=== PATIENT | female | born 1995 ===

== ENCOUNTER 2016-08-29 16:28 | Emergency (ER) | payer OTHER ==
[2016-08-29 16:28] VITALS: BMI 34.0
[2016-08-29 16:37] VITALS: RESP 20; TEMP 98.4; O2SAT 99
--- NOTE | 2016-08-29 17:29 | RAD ---
PROCEDURE: Right Hand Radiographs. HISTORY: Pain, right hand swelling. No antecedent history of trauma provided. Anatomic area of interest: 5th metatarsal region. COMPARISON: 04/06/2016. FINDINGS: BONES: Normal. No fracture. JOINTS: Normal. No osteoarthritic changes. SOFT TISSUES: Lateral soft tissue swelling without adjacent abnormality 5th digit, 5th metacarpal OTHER FINDINGS: None. IMPRESSION: Soft tissue swelling without acute articular or osseous abnormality. No significant interval change compared to the prior examination(s).
--- NOTE | 2016-08-29 17:41 | ED PDOC ---
Upper Extremity Pain/Injury Time Seen by Provider: 08/29/16 16:41 Chief Complaint (Nursing): Finger,Hand,&Wrist Chief Complaint (Provider): Atraumatic swelling of the left hand History Per: Patient History/Exam Limitations: no limitations Onset/Duration Of Symptoms: Hrs Current Symptoms Are (Timing): Still Present Additional Complaint(s): Raquel Garcia, a 20 year old female, presents to the ED with atraumatic left hand pain. The patient states she woke up this morning with pain and swelling of the left hand. She states she had similar symtoms months ago which resolved spontaneously. Denies rash, numbness, tingling. Past Medical History Reviewed: Historical Data, Nursing Documentation, Vital Signs Vital Signs: Last Vital Signs Temp 98.4 F 08/29/16 16:34 Pulse 106 H 08/29/16 16:34 Resp 20 08/29/16 16:34 BP 120/92 H 08/29/16 16:34 Pulse Ox 99 08/29/16 16:34 - Medical History PMH: No Chronic Diseases - Surgical History Surgical History: No Surg Hx - Family History Family History: States: Unknown Family Hx, Hypertension - Home Medications Home Medications: Ambulatory Orders Medication Instructions Recorded Guaifen/Phenyleph/Acetaminophn 1 tab PO BID #14 tab 05/07/16 [Mucinex Fast-Max Cold & Sinus 325 mg-200 mg-5] Ibuprofen [Motrin Tab] 800 mg PO Q6H PRN #20 tab 05/07/16 Ondansetron ODT [Zofran ODT] 4 mg PO QID #20 odt 05/15/16 Meloxicam [Mobic] 7.5 mg PO DAILY PRN #14 tab 08/29/16 - Allergies Allergies/Adverse Reactions: Allergies Allergy/AdvReac Type Severity Reaction Status Date / Time pineapple Allergy REDNESS Verified 05/07/16 13:17 Review of Systems Musculoskeletal: Positive for: Other (Denies numbness, tingling) Skin: Negative for: Rash Physical Exam - Reviewed Nursing Documentation Reviewed: Yes Vital Signs Reviewed: Yes - Physical Exam Appears: Positive for: Non-toxic, No Acute Distress Head Exam: Positive for: ATRAUMATIC, NORMOCEPHALIC Skin: Positive for: Normal Color, Warm, Dry Pulses-Radial (L): 2+ Extremity: Positive for: Normal ROM (actively of R hand), Tenderness (mild tenderness to right 5th metacarpal of left hand.), Capillary Refill (capillary refills less than 2 seconds.), Swelling (mild swelling to right 5th metacarpal with crepitus), Other. Negative for: Deformity Neurologic/Psych: Positive for: Alert, Oriented - ECG O2 Sat by Pulse Oximetry: 99 (RA) Pulse Ox Interpretation: Normal - Radiology X-Ray: Interpreted by Me (R hand x-ray) X-Ray Interpretation: No Acute Disease Medical Decision Making Medical Decision Makin:41 Initial Impression: 20 year old female presenting with atraumatic left hand pain Initial Plan: * RAD right hand Scribe Attestation Documented by Rina Stringer acting as a scribe for Indio Perez PA-C. Provider Attestation: All medical record entries made by the Scribe were at my direction and personally dictated by me. I have reviewed the chart and agree that the record accurately reflects my personal performance of the history, physical exam, medical decision making, and the department course for this patient. I have also personally directed, reviewed, and agree with the discharge instructions and disposition. Disposition - Clinical Impression Clinical Impression: Hand pain - Patient ED Disposition Is Patient to be Admitted: No - Disposition Referrals: [facility] [Outside] Heraclio Gray MD [Staff Provider] - Disposition Time: 17:30 Condition: STABLE Prescriptions: Meloxicam [Mobic] 7.5 mg PO DAILY PRN #14 tab PRN Reason: Pain, Mild (1-3) Instructions: Arthralgia (ED) Print Language: BELARUSIAN
[2016-08-29 17:44] VITALS: BP 120/89; PULSE 92
== END 2016-08-29 17:43 | disposition home or self-care (01) ==
LOC: H.ER 16:28
DX: M79.642 Pain in left hand (principal)

== ENCOUNTER 2016-11-24 16:29 | Emergency (ER) | payer OTHER ==
[2016-11-24 16:29] VITALS: BMI 34.0
[2016-11-24 16:41] VITALS: BP 122/81; PULSE 97; RESP 18; TEMP 98.3; O2SAT 99
--- NOTE | 2016-11-24 16:51 | ED PDOC ---
HPI: Female Pain Time Seen by Provider: 11/24/16 16:41 Chief Complaint (Nursing): Female Genitourinary Chief Complaint (Provider): dysuria History Per: Patient History/Exam Limitations: no limitations Onset/Duration Of Symptoms: Days (8) Current Symptoms Are (Timing): Still Present Quality Of Discomfort: Cramping (suprapubic) Associated Symptoms: Nausea, Urinary Symptoms (hematuira, dysuria, freq, burning , urgency). denies: Fever, Chills, Vomiting, Diarrhea, Loss Of Appetite, Back Pain, Chest Pain, Constipation Abnormal Vaginal Bleeding: No Past Medical History Reviewed: Historical Data, Nursing Documentation, Vital Signs Vital Signs: Last Vital Signs Temp 98.3 F 11/24/16 16:39 Pulse 97 H 11/24/16 16:39 Resp 18 11/24/16 16:39 BP 122/81 11/24/16 16:39 Pulse Ox 99 11/24/16 16:39 - Medical History PMH: No Chronic Diseases - Family History Family History: States: Unknown Family Hx, Hypertension - Home Medications Home Medications: Ambulatory Orders Medication Instructions Recorded Guaifen/Phenyleph/Acetaminophn 1 tab PO BID #14 tab 05/07/16 [Mucinex Fast-Max Cold & Sinus 325 mg-200 mg-5] Ibuprofen [Motrin Tab] 800 mg PO Q6H PRN #20 tab 05/07/16 Ondansetron ODT [Zofran ODT] 4 mg PO QID #20 odt 05/15/16 Meloxicam [Mobic] 7.5 mg PO DAILY PRN #14 tab 08/29/16 Nitrofurantoin Macrocrystals 100 mg PO BID #14 cap 11/24/16 [Macrobid] - Allergies Allergies/Adverse Reactions: Allergies Allergy/AdvReac Type Severity Reaction Status Date / Time pineapple Allergy REDNESS Verified 11/24/16 16:38 Review of Systems ROS Statement: Except As Marked, All Systems Reviewed And Found Negative Genitourinary Female: Positive for: Dysuria. Negative for: Hematuria, Pelvic Pain Physical Exam - Reviewed Nursing Documentation Reviewed: Yes Vital Signs Reviewed: Yes - Physical Exam Appears: Positive for: Well, Non-toxic, No Acute Distress Skin: Positive for: Normal Color, Warm, DRY Cardiovascular/Chest: Positive for: Regular Rate, Rhythm Respiratory: Positive for: CNT, Normal Breath Sounds Gastrointestinal/Abdominal: Positive for: Normal Exam, Bowel Sounds, Soft. Negative for: Tenderness Back: Positive for: Normal Inspection. Negative for: L CVA Tenderness, R CVA Tenderness Extremity: Positive for: Normal ROM Neurologic/Psych: Positive for: Alert, Oriented - ECG O2 Sat by Pulse Oximetry: 99 - Progress ED Course And Treament: impression: cystitis uncomplicated Medical Decision Making Medical Decision Making: dx: UTI tx: macrobid pt states she was seen at her obgyn on Saturday-was tested for STI. advised to f.u with pmd Urine C&S sent. Disposition - Clinical Impression Clinical Impression: UTI (urinary tract infection) - Patient ED Disposition Is Patient to be Admitted: No Counseled Patient/Family Regarding: Studies Performed, Diagnosis, Need For Followup, Rx Given - Disposition Referrals: [facility] [Outside] Disposition: Routine/Home Disposition Time: 17:04 Condition: STABLE Prescriptions: Nitrofurantoin Macrocrystals [Macrobid] 100 mg PO BID #14 cap Instructions: Urinary Tract Infection in Women (GEN) Forms: [facility] (Kyrgyz)
[2016-11-24 17:11] LABS: RBC URINE 1231 /hpf (0-3); URINE BILIRUBIN NEGATIVE (NEGATIVE); URINE BLOOD LARGE (NEGATIVE); URINE COLOR YELLOW (YELLOW); URINE GLUCOSE (UA) NEG (Normal); URINE KETONE NEGATIVE (NEGATIVE); URINE LEUKOCYTE ESTERASE MOD Leu/uL (Negative); URINE PROTEIN 30 mg/dL (NEGATIVE); URINE UROBILINOGEN 0.2-1.0 mg/dL (0.2-1.0); WBC URINE 16 /hpf (0-5)
== END 2016-11-24 17:22 | disposition home or self-care (01) ==
LOC: H.ER 16:29
DX: N39.0 Urinary tract infection, site not specified (principal); N30.90 Cystitis, unspecified without hematuria

== ENCOUNTER 2017-03-12 10:48 | Emergency (ER) | payer OTHER ==
[2017-03-12 10:58] VITALS: BMI 36.0
[2017-03-12 10:59] VITALS: BP 129/72; PULSE 100; RESP 20; TEMP 98.8; O2SAT 99
[2017-03-12] MEDS ORDERED: Sodium Chloride 0.9% 1,000 ML IV STA (11:23)
--- NOTE | 2017-03-12 11:23 | ED PDOC ---
HPI:Nausea, Vomiting, Diarrhea Time Seen by Provider: 03/12/17 11:05 Chief Complaint (Nursing): GI Problem Chief Complaint (Provider): Nausea History Per: Patient History/Exam Limitations: no limitations Onset/Duration Of Symptoms: Days (2 weeks) Current Symptoms Are (Timing): Still Present Additional Complaint(s): Pt. with nausea, no vomit. States wants to know if she is preg. No abd pain, pelvic pain, vaginal bleeding, dysuria, weakness, back pain, dyspnea, fever. No dizziness. Has off and on headaches that are the same as her migraines, not new. Ongoing for a long time. Not worst in her life. No neck pain, numbness, tingles. No headache currently. Past Medical History Reviewed: Nursing Documentation, Vital Signs Vital Signs: Last Vital Signs Temp 98.8 F 03/12/17 10:58 Pulse 100 H 03/12/17 10:58 Resp 20 03/12/17 10:58 BP 129/72 03/12/17 10:58 Pulse Ox 99 03/12/17 10:58 - Medical History PMH: No Chronic Diseases - Surgical History Surgical History: No Surg Hx - Family History Family History: States: Unknown Family Hx - Living Arrangements Living Arrangements: With Family - Social History Current smoker - smoking cessation education provided: No Alcohol: None Drugs: Denies, Cannabis - Home Medications Home Medications: Ambulatory Orders Medication Instructions Recorded Guaifen/Phenyleph/Acetaminophn 1 tab PO BID #14 tab 05/07/16 [Mucinex Fast-Max Cold & Sinus 325 mg-200 mg-5] Ibuprofen [Motrin Tab] 800 mg PO Q6H PRN #20 tab 05/07/16 Ondansetron ODT [Zofran ODT] 4 mg PO QID #20 odt 05/15/16 Meloxicam [Mobic] 7.5 mg PO DAILY PRN #14 tab 08/29/16 Nitrofurantoin Macrocrystals 100 mg PO BID #14 cap 11/24/16 [Macrobid] - Allergies Allergies/Adverse Reactions: Allergies Allergy/AdvReac Type Severity Reaction Status Date / Time pineapple Allergy REDNESS Verified 11/24/16 16:38 Review of Systems ROS Statement: Except As Marked, All Systems Reviewed And Found Negative Gastrointestinal: Positive for: Nausea Neurological: Positive for: Headache (same as her migraines gone now) Physical Exam - Reviewed Nursing Documentation Reviewed: Yes Vital Signs Reviewed: Yes - Physical Exam Appears: Positive for: Non-toxic, No Acute Distress Head Exam: Positive for: ATRAUMATIC, NORMAL INSPECTION, NORMOCEPHALIC Skin: Positive for: Normal Color, Warm, DRY Eye Exam: Positive for: EOMI, Normal appearance, PERRL ENT: Positive for: Normal ENT Inspection Neck: Positive for: Normal, Painless ROM, Supple Cardiovascular/Chest: Positive for: Regular Rate, Rhythm Respiratory: Positive for: CNT, Normal Breath Sounds Gastrointestinal/Abdominal: Positive for: Normal Exam, Bowel Sounds, Soft. Negative for: Tenderness Back: Positive for: Normal Inspection. Negative for: L CVA Tenderness, R CVA Tenderness Extremity: Positive for: Normal ROM. Negative for: Tenderness, Pedal Edema Neurologic/Psych: Positive for: Alert, legal technician II-XII, Oriented. Negative for: Motor/Sensory Deficits, Aphasia, Facial Droop - Laboratory Results Result Diagrams: 03/12/17 11:51 03/12/17 11:51 Interpretation Of Abn Labs: no acute Urine POC: Negative Urine dip results: Negative for: Leukocyte Esterase, Nitrate - ECG O2 Sat by Pulse Oximetry: 99 Pulse Ox Interpretation: Normal - Progress ED Course And Treament: 1214: Stable. AAOx3. No pain and no nausea or vomit. No headaches. Ambulated with no issues. Tolerated PO. Fu with pcp. Disposition - Clinical Impression Clinical Impression: Nausea - Patient ED Disposition Is Patient to be Admitted: No Counseled Patient/Family Regarding: Studies Performed, Diagnosis, Need For Followup - Disposition Referrals: [facility] [Outside] - 03/13/17 Disposition: Routine/Home Disposition Time: 12:15 Condition: STABLE Additional Instructions: Return if not better in 3 days. Instructions: Acute Nausea and Vomiting (ED) Forms: [facility] (Honduran), [facility] ED School/Work Excuse
[2017-03-12 12:09] LABS: ALB/GLOB RATIO 1.2 (1.0-2.1); ALKALINE PHOSPHATASE 61 U/L (38-126); ALT/SGPT 33 U/L (9-52); AST/SGOT 22 U/L (14-36); BILIRUBIN,TOTAL 0.4 mg/dl (0.2-1.3); BLOOD UREA NITROGEN 12 mg/dl (7-17); CARBON DIOXIDE 24 mmol/L (22-30); CHLORIDE 107 mmol/L (98-107); GFR AFRICAN-AMERICAN > 60; GLUCOSE,RANDOM 99 mg/dL (65-105); LIPASE 46 U/L (23-300); SODIUM 143 mmol/l (132-148)
[2017-03-12 12:10] LABS: BASO % 0.5 % (0.0-2.0); EOS % 0.3 % (0.0-4.0); HEMATOCRIT 32.3 % (34.0-47.0); LYMPH # 1.9 K/uL (1.0-4.3); LYMPH % 25.4 % (20.0-40.0); MEAN CELL VOLUME 66.1 fl (81.0-99.0); MEAN CORPUSCULAR HEMOGLOBIN 20.7 pg (27.0-31.0); MEAN CORPUSCULAR HGB CONC 31.3 g/dL (33.0-37.0); MEAN PLATELET VOLUME 7.8 fl (7.2-11.7); MONO # 0.5 K/uL (0.0-0.8); MONO % 6.5 % (0.0-10.0); NEUT # 4.9 K/uL (1.8-7.0); NEUT % 67.3 % (50.0-75.0); RED CELL DISTRIBUTION WIDTH 18.3 % (11.5-14.5); WHITE BLOOD COUNT 7.3 K/uL (4.8-10.8)
== END 2017-03-12 13:30 | disposition home or self-care (01) ==
LOC: H.ER 10:48
DX: R11.0 Nausea (principal)
CPT/HCPCS: 80053; 81025; 83690; 85025; 96374; 99281; J2765; J7040

== ENCOUNTER 2017-04-10 17:46 | Emergency (ER) | payer OTHER ==
[2017-04-10 17:47] VITALS: BMI 36.0
[2017-04-10 18:37] VITALS: BP 150/83; PULSE 93; RESP 16; TEMP 98.7; O2SAT 99
--- NOTE | 2017-04-10 18:56 | ED PDOC ---
HPI: General Adult Time Seen by Provider: 04/10/17 18:14 Chief Complaint (Nursing): Cough, Cold, Congestion Chief Complaint (Provider): Cough, Cold, Congestion History Per: Patient History/Exam Limitations: no limitations Onset/Duration Of Symptoms: Days (x 2) Current Symptoms Are (Timing): Still Present Additional Complaint(s): Vandana is a 21 year old female who presents to the emergency department with congestion, sneezing and coughing since last night. Patient states her fever was measured at 100. Patient reports taking Tylenol earlier today, and Nyquil last night. PMD: Holly Ang Past Medical History Reviewed: Historical Data, Nursing Documentation, Vital Signs Vital Signs: Last Vital Signs Temp 98.7 F 04/10/17 18:34 Pulse 93 H 04/10/17 18:34 Resp 16 04/10/17 18:34 BP 150/83 04/10/17 18:34 Pulse Ox 99 04/10/17 19:00 - Medical History PMH: No Chronic Diseases - Surgical History Surgical History: No Surg Hx - Family History Family History: States: Unknown Family Hx, Hypertension - Social History Current smoker - smoking cessation education provided: No Alcohol: None Drugs: Denies - Home Medications Home Medications: Ambulatory Orders Medication Instructions Recorded Guaifen/Phenyleph/Acetaminophn 1 tab PO BID #14 tab 05/07/16 [Mucinex Fast-Max Cold & Sinus 325 mg-200 mg-5] Ibuprofen [Motrin Tab] 800 mg PO Q6H PRN #20 tab 05/07/16 Ondansetron ODT [Zofran ODT] 4 mg PO QID #20 odt 05/15/16 Meloxicam [Mobic] 7.5 mg PO DAILY PRN #14 tab 08/29/16 Nitrofurantoin Macrocrystals 100 mg PO BID #14 cap 11/24/16 [Macrobid] Azithromycin [Zithromax] 250 mg PO DAILY #6 tab 04/10/17 - Allergies Allergies/Adverse Reactions: Allergies Allergy/AdvReac Type Severity Reaction Status Date / Time pineapple Allergy REDNESS Verified 04/10/17 18:34 Review of Systems ROS Statement: Except As Marked, All Systems Reviewed And Found Negative ENT: Positive for: Nose Congestion, Other (Sneezing) Respiratory: Positive for: Cough - ECG O2 Sat by Pulse Oximetry: 99 (RA) Pulse Ox Interpretation: Normal Medical Decision Making Medical Decision Making: Time: 18:57 Plan: - Urine (POC) - Chest X-Ray Scribe Attestation: Documented by Jean Case, acting as a scribe for Kelin Acevedo PA-C Provider Scribe Attestation: All medical record entries made by the Scribe were at my direction and personally dictated by me. I have reviewed the chart and agree that the record accurately reflects my personal performance of the history, physical exam, medical decision making, and the department course for this patient. I have also personally directed, reviewed, and agree with the discharge instructions and disposition. Disposition - Clinical Impression Clinical Impression: Acute bronchitis - Patient ED Disposition Is Patient to be Admitted: No Counseled Patient/Family Regarding: Diagnosis, Need For Followup, Rx Given - Disposition Disposition: Routine/Home Disposition Time: 20:51 Condition: GOOD Prescriptions: Azithromycin [Zithromax] 250 mg PO DAILY #6 tab Instructions: Acute Bronchitis (ED) Forms: [employer] (Persian)
--- NOTE | 2017-04-11 09:28 | RAD ---
HISTORY: cough COMPARISON: 03/10/2016 TECHNIQUE: Chest PA and lateral FINDINGS: LUNGS: No active pulmonary disease. PLEURA: No significant pleural effusion identified. No pneumothorax apparent. CARDIOVASCULAR: Normal. OSSEOUS STRUCTURES: No significant abnormalities. VISUALIZED UPPER ABDOMEN: Normal. OTHER FINDINGS: None. IMPRESSION: No active disease.
== END 2017-04-10 20:56 | disposition home or self-care (01) ==
LOC: H.ER 17:46
DX: J20.9 Acute bronchitis, unspecified (principal)

== ENCOUNTER 2017-08-06 18:10 | Emergency (ER) | payer OTHER ==
[2017-08-06 18:11] VITALS: BMI 36.0
[2017-08-06 18:16] VITALS: BP 147/80; RESP 18; TEMP 98.5; O2SAT 98
[2017-08-06] MEDS: Lactated Ringer's 1,000 ML IV STA (18:48)
[2017-08-06 18:57] VITALS: PULSE 92
--- NOTE | 2017-08-06 18:57 | ED PDOC ---
HPI:Nausea, Vomiting, Diarrhea Time Seen by Provider: 08/06/17 18:21 Chief Complaint (Nursing): GI Problem Chief Complaint (Provider): GI Problem History Per: Patient History/Exam Limitations: no limitations Onset/Duration Of Symptoms: Days (x1) Current Symptoms Are (Timing): Still Present Additional Complaint(s): 21 year old female with medical history of migraines, presents to the emergency department with a complaint of nausea and 2 episodes of vomiting since waking up this morning. She also reports decreased appetite but was able to tolerate soup ingested 2 hours prior to visit. She denies any fever, chills, abdominal pain, diarrhea, constipation, dysuria, hematuria, vaginal discharge, vaginal bleeding, recent sick contacts or travel. Patient states that she took Tums and Ana Laura-Jones for relief. PMD: Donn Almonte MD Past Medical History Reviewed: Historical Data, Nursing Documentation, Vital Signs Vital Signs: Last Vital Signs Temp 98.5 F 08/06/17 18:13 Pulse 114 H 08/06/17 18:13 Resp 18 08/06/17 18:13 BP 147/80 08/06/17 18:13 Pulse Ox 98 08/06/17 18:13 - Medical History PMH: Migraine - Surgical History Surgical History: No Surg Hx - Family History Family History: States: Diabetes, Hypertension, Other Other Family History: cancer - Social History Current smoker - smoking cessation education provided: No Ex-Smoker (has not smoked in the last 12 months): No Alcohol: None Drugs: Denies - Home Medications Home Medications: Ambulatory Orders Medication Instructions Recorded Guaifen/Phenyleph/Acetaminophn 1 tab PO BID #14 tab 05/07/16 [Mucinex Fast-Max Cold & Sinus 325 mg-200 mg-5] Ibuprofen [Motrin Tab] 800 mg PO Q6H PRN #20 tab 05/07/16 Ondansetron ODT [Zofran ODT] 4 mg PO QID #20 odt 05/15/16 Meloxicam [Mobic] 7.5 mg PO DAILY PRN #14 tab 08/29/16 Nitrofurantoin Macrocrystals 100 mg PO BID #14 cap 11/24/16 [Macrobid] Azithromycin [Zithromax] 250 mg PO DAILY #6 tab 04/10/17 Ondansetron ODT [Zofran ODT] 1 odt PO Q6 PRN #20 odt 08/06/17 - Allergies Allergies/Adverse Reactions: Allergies Allergy/AdvReac Type Severity Reaction Status Date / Time pineapple Allergy REDNESS Verified 04/10/17 18:34 Review of Systems ROS Statement: Except As Marked, All Systems Reviewed And Found Negative Constitutional: Negative for: Fever, Chills Gastrointestinal: Positive for: Nausea, Vomiting, Other (decreased appetite). Negative for: Abdominal Pain, Diarrhea, Constipation Genitourinary Female: Negative for: Dysuria, Hematuria, Vaginal Discharge, Vaginal Bleeding Physical Exam - Reviewed Nursing Documentation Reviewed: Yes Vital Signs Reviewed: Yes - Physical Exam Appears: Positive for: Non-toxic, No Acute Distress Head Exam: Positive for: ATRAUMATIC, NORMOCEPHALIC Skin: Positive for: Warm, Dry Eye Exam: Positive for: EOMI, PERRL ENT: Positive for: Other (tacky) Neck: Positive for: Painless ROM, Supple Cardiovascular/Chest: Positive for: Regular Rate, Rhythm. Negative for: Murmur Respiratory: Positive for: Normal Breath Sounds. Negative for: Wheezing Gastrointestinal/Abdominal: Positive for: Normal Exam, Soft. Negative for: Tenderness, Mass, Distended, Guarding, Rebound Back: Positive for: Normal Inspection. Negative for: Muscle Spasm Extremity: Positive for: Normal ROM. Negative for: Deformity Lymphatic: Negative for: Adenopathy Neurologic/Psych: Positive for: Alert. Negative for: Motor/Sensory Deficits - Laboratory Results Result Diagrams: 08/06/17 19:15 08/06/17 19:15 - ECG O2 Sat by Pulse Oximetry: 98 (RA) Pulse Ox Interpretation: Normal Medical Decision Making Medical Decision Making: Initial Impression: Nausea; Vomiting Differential Diagnosis: Gastritis; Dyspepsia; Reflux; Dehydration Initial Plan: * CMP * Lipase * Urine * Urine dipstick * CBC * Lactated Ringers 1,000ml IV per 1,000mls/hr * Zofran 4mg PO Labs unremarkable. DW pt findings and plan of care. Increase fluids, bland diet, rest, f/u pmd. Scribe Attestation: Documented by Heidi Lee, acting as a scribe for Ginny Temple MD. Provider Scribe Attestation: All medical record entries made by the Scribe were at my direction and personally dictated by me. I have reviewed the chart and agree that the record accurately reflects my personal performance of the history, physical exam, medical decision making, and the department course for this patient. I have also personally directed, reviewed, and agree with the discharge instructions and disposition. Disposition - Clinical Impression Clinical Impression: Nausea & vomiting Counseled Patient/Family Regarding: Studies Performed, Diagnosis, Need For Followup, Rx Given - Disposition Referrals: [facility] [Outside] - 08/07/17 (FOLLOW UP WITH CLINIC IN 1- 2 DAYS) Disposition: Routine/Home Disposition Time: 21:05 Condition: IMPROVED Prescriptions: Ondansetron ODT [Zofran ODT] 1 odt PO Q6 PRN #20 odt PRN Reason: Nausea/Vomiting Instructions: Nausea and Vomiting, Adult Forms: [facility] School/Work Excuse
[2017-08-06 19:39] LABS: BASO # 0.1 K/uL (0.0-0.2); BASO % 0.6 % (0.0-2.0); EOS % 0.2 % (0.0-4.0); HEMOGLOBIN 10.4 g/dL (12.0-16.0); LYMPH # 2.1 K/uL (1.0-4.3); LYMPH % 20.7 % (20.0-40.0); MEAN CELL VOLUME 67.1 fl (81.0-99.0); MEAN CORPUSCULAR HEMOGLOBIN 21.8 pg (27.0-31.0); MEAN CORPUSCULAR HGB CONC 32.4 g/dL (33.0-37.0); MEAN PLATELET VOLUME 7.5 fl (7.2-11.7); MONO # 0.9 K/uL (0.0-0.8); MONO % 8.5 % (0.0-10.0); NEUT # 7.1 K/uL (1.8-7.0); NRBC % 0.1 % (0.0-0.0); RBC 4.77 Mil/uL (3.80-5.20); RED CELL DISTRIBUTION WIDTH 18.1 % (11.5-14.5); WHITE BLOOD COUNT 10.2 K/uL (4.8-10.8)
[2017-08-06 19:42] LABS: ALB/GLOB RATIO 1.1 (1.0-2.1); ALBUMIN 4.2 g/dL (3.5-5.0); ALT/SGPT 33 U/L (9-52); AST/SGOT 21 U/L (14-36); BLOOD UREA NITROGEN 11 mg/dl (7-17); GFR AFRICAN-AMERICAN > 60; GFR NON-AFRICAN AMERICAN > 60; LIPASE 67 U/L (23-300)
== END 2017-08-06 21:33 | disposition home or self-care (01) ==
LOC: H.ER 18:10
DX: R11.2 Nausea with vomiting, unspecified (principal)
CPT/HCPCS: 80053; 81025; 83690; 85025; 96360; 99284; J7120

== ENCOUNTER 2017-10-05 05:59 | Emergency (ER) | payer OTHER ==
[2017-10-05 05:59] VITALS: BMI 34.4
[2017-10-05] MEDS ORDERED: Sodium Chloride 0.9% 1,000 ML IV STA (07:17)
--- NOTE | 2017-10-05 07:23 | ED PDOC ---
HPI: General Adult Time Seen by Provider: 10/05/17 07:02 Chief Complaint (Nursing): Fever Chief Complaint (Provider): Fever History Per: Patient History/Exam Limitations: no limitations Onset/Duration Of Symptoms: Days (x2) Current Symptoms Are (Timing): Still Present Additional Complaint(s): 21 year old female presented to the ED complaining of fever since . Patient reports sore throat and left ear pain when she swallows. She states she vomited once on Saturday and twice today due to nausea. Patient indicates having a headache but states it is normal due to frequent migraines. She took dayquil yesterday and tylenol last night. Patient is also complaining of cough with no sputum and denies runny nose, diarrhea, belly pain, back pain, dysuria, and rash. LNMP 10/05/17. PCP: [facility] in [place] Past Medical History Reviewed: Historical Data, Nursing Documentation, Vital Signs Vital Signs: Last Vital Signs Temp 99.4 F 10/05/17 06:17 Pulse 108 H 10/05/17 09:14 Resp 14 10/05/17 09:14 BP 118/77 10/05/17 09:14 Pulse Ox 100 10/05/17 09:14 - Medical History PMH: Migraine - Surgical History Surgical History: No Surg Hx - Family History Family History: States: Unknown Family Hx, Diabetes, Hypertension - Social History Current smoker - smoking cessation education provided: No Alcohol: Occasional Drugs: Denies - Home Medications Home Medications: Ambulatory Orders Medication Instructions Recorded Guaifen/Phenyleph/Acetaminophn 1 tab PO BID #14 tab 05/07/16 [Mucinex Fast-Max Cold & Sinus 325 mg-200 mg-5] Ondansetron ODT [Zofran ODT] 4 mg PO QID #20 odt 05/15/16 Meloxicam [Mobic] 7.5 mg PO DAILY PRN #14 tab 08/29/16 Nitrofurantoin Macrocrystals 100 mg PO BID #14 cap 11/24/16 [Macrobid] Azithromycin [Zithromax] 250 mg PO DAILY #6 tab 04/10/17 Ondansetron ODT [Zofran ODT] 1 odt PO Q6 PRN #20 odt 08/06/17 Ibuprofen [Motrin Tab] 800 mg PO Q6H PRN #20 tab 05/15/18 Amoxicillin/Clavulanate [Augmentin 1 tab PO BID #20 tab 10/05/17 875 MG-125 MG] Lidocaine 2% Viscous 10 ml MM Q4H PRN #1 bottle 10/05/17 Naproxen [Naprosyn] 500 mg PO BID PRN #20 tablet 10/05/17 - Allergies Allergies/Adverse Reactions: Allergies Allergy/AdvReac Type Severity Reaction Status Date / Time pineapple Allergy REDNESS Verified 04/10/17 18:34 Review of Systems ROS Statement: Except As Marked, All Systems Reviewed And Found Negative Constitutional: Positive for: Fever ENT: Positive for: Ear Pain (left), Throat Pain (sore throat) Cardiovascular: Negative for: Chest Pain Respiratory: Positive for: Cough Gastrointestinal: Positive for: Nausea, Vomiting. Negative for: Abdominal Pain , Diarrhea Genitourinary Female: Negative for: Dysuria Skin: Negative for: Rash Neurological: Positive for: Headache Physical Exam - Reviewed Nursing Documentation Reviewed: Yes Vital Signs Reviewed: Yes - Physical Exam Appears: Positive for: Non-toxic, No Acute Distress Head Exam: Positive for: ATRAUMATIC, NORMOCEPHALIC Skin: Positive for: Normal Color, Warm, Dry Eye Exam: Positive for: Normal appearance ENT: Positive for: Pharynx Is (erythematous and tender on left side), TM Is/Are (normal), Other (uvula is midline) Neck: Positive for: Normal, Painless ROM Cardiovascular/Chest: Positive for: Regular Rate, Rhythm. Negative for: Murmur Respiratory: Positive for: Normal Breath Sounds. Negative for: Wheezing, Respiratory Distress Back: Positive for: Normal Inspection. Negative for: L CVA Tenderness, R CVA Tenderness Extremity: Positive for: Normal ROM Neurologic/Psych: Positive for: Alert, Oriented. Negative for: Motor/Sensory Deficits - Laboratory Results Result Diagrams: 10/05/17 07:33 10/05/17 07:33 - ECG O2 Sat by Pulse Oximetry: 97 (RA) Pulse Ox Interpretation: Normal Medical Decision Making Medical Decision Making: Initial Impression: pharyngitis, r/o peritonsillar abscess Initial Plan: --CT neck --BMP --CBC --PTT --Prothrombin Time --Sodium chloride 1000mL IV --Ceftriaxone 1000mg Sodium chloride 0.9% 100mL IV --Toradol 30mg IV --Zofran 4mg IV --Blood culture --Rapid strep Scribe Attestation: Documented by Jason Peres acting as a scribe for Andreia Martinez MD. Provider Scribe Attestation: All medical record entries made by the Scribe were at my direction and personally dictated by me. I have reviewed the chart and agree that the record accurately reflects my personal performance of the history, physical exam, medical decision making, and the department course for this patient. I have also personally directed, reviewed, and agree with the discharge instructions and disposition. 9.30a - CT Neck - no abscess or fluid collection Disposition - Clinical Impression Clinical Impression: Tonsillopharyngitis - Patient ED Disposition Is Patient to be Admitted: No Doctor Will See Patient In The: Office Counseled Patient/Family Regarding: Diagnosis, Need For Followup, Rx Given - Disposition Referrals: [facility] [Outside] [facility] [place] [Outside] [facility] [Outside] Disposition: Routine/Home Disposition Time: 09:30 Condition: IMPROVED Prescriptions: Amoxicillin/Clavulanate [Augmentin 875 MG-125 MG] 1 tab PO BID #20 tab Lidocaine 2% Viscous 10 ml MM Q4H PRN #1 bottle PRN Reason: Sore Throat Naproxen [Naprosyn] 500 mg PO BID PRN #20 tablet PRN Reason: Pain, Moderate (4-7) Instructions: Sore Throat in Adults Forms: [facility] (E[place]ian), [facility] ED School/Work Excuse - POA Present On Arrival: None
[2017-10-05] MEDS ORDERED: cefTRIAXone (Rocephin) 1 gm Inj ONE (07:41)
[2017-10-05 07:50] LABS: BASO % 0.2 % (0.0-2.0); HEMOGLOBIN 10.4 g/dL (12.0-16.0); LYMPH # 0.8 K/uL (1.0-4.3); LYMPH % 4.9 % (20.0-40.0); MEAN CELL VOLUME 66.7 fl (81.0-99.0); MEAN CORPUSCULAR HEMOGLOBIN 21.7 pg (27.0-31.0); MEAN CORPUSCULAR HGB CONC 32.6 g/dL (33.0-37.0); MEAN PLATELET VOLUME 7.5 fl (7.2-11.7); MONO # 1.4 K/uL (0.0-0.8); MONO % 8.6 % (0.0-10.0); NEUT # 14.3 K/uL (1.8-7.0); NEUT % 86.3 % (50.0-75.0); NRBC % 0.1 % (0.0-0.0); PLATELET COUNT 499 K/uL (130-400); RED CELL DISTRIBUTION WIDTH 17.1 % (11.5-14.5); WHITE BLOOD COUNT 16.6 K/uL (4.8-10.8)
[2017-10-05 08:04] LABS: BLOOD UREA NITROGEN 9 mg/dl (7-17); CALCIUM 9.1 mg/dL (8.4-10.2); GFR AFRICAN-AMERICAN > 60; GFR NON-AFRICAN AMERICAN > 60
[2017-10-05 08:16] LABS: INR 1.4 (0.9-1.2); PARTIAL THROMBOPLASTIN TIME 31.5 Seconds (25.6-37.1); PROTHROMBIN TIME 15.2 Seconds (9.8-13.1)
[2017-10-05] MEDS ORDERED: Iohexol 300 100 ML IJ ONE (08:43)
[2017-10-05] MEDS ORDERED: Sodium Chloride 0.9% 50 ML IV ONE (08:43)
[2017-10-05] MEDS ORDERED: Potassium Chloride 20 mEq ER Tab PO STA (08:56)
[2017-10-05] MEDS ORDERED: Potassium Chloride 20 mEq ER Tab PO ONE ×2 (09:12→09:17)
--- NOTE | 2017-10-05 10:00 | CT ---
PROCEDURE: CT NECK WITH CONTRAST HISTORY: left sided throat pain, fever COMPARISON: None TECHNIQUE: CT of the neck with intravenous contrast. Coronal and sagittal reformats generated. Intravenous contrast dose: Radiation dose: DLP mGy-cm This CT exam was performed using one or more of the following dose reduction techniques: Automated exposure control, adjustment of the mA and/or kV according to patient size, and/or use of iterative reconstruction technique. FINDINGS: NASOPHARYNX: Mild prominence of the the left parapharyngeal soft tissues without evidence of fluid collection/abscess. Suggestion of slight mass effect upon the airway. SUPRAHYOID NECK: Unremarkable oropharynx, oral cavity, parapharyngeal space and retropharyngeal space. INFRAHYOID NECK: Unremarkable larynx, hypopharynx, and supraglottic space. Vocal cords intact. MASS: None. GLANDS: Parotid and submandibular glands unremarkable. Normal size thyroid gland, without nodule. LYMPH NODES: Enlarged 11 millimeter left jugulodigastric lymph node. CERVICAL SPINE: No fracture or focal lesion. VASCULAR STRUCTURES: Unremarkable. OTHER FINDINGS: None. IMPRESSION: Mild prominence of the the left parapharyngeal soft tissues without evidence of fluid collection/abscess. Suggestion of slight mass effect upon the airway.Enlarged non 11 millimeter left jugulodigastric lymph node. Findings suspicious for an underlying inflammatory process.
[2017-10-05 10:11] LABS: BANDS 2 % (0-2); LYMPHOCYTE 7 % (20-50); MONOCYTE 7 % (0-10); NEUTROPHIL 84 % (42-75); TOTAL CELLS COUNTED 100
[2017-10-05 10:17] LABS: ANISOCYTOSIS SLIGHT; MICROCYTOSIS SLIGHT
[2017-10-05 10:18] LABS: HYPOCHROMIC SLIGHT; PLATELET CLUMPS PRESENT; STOMATOCYTES SLIGHT
[2017-10-05 10:19] LABS: TOXIC GRANULATION PRESENT
[2017-10-05 10:42] VITALS: BP 101/66; PULSE 96; RESP 22; TEMP 98.5; O2SAT 100
[2017-10-05 11:17] LABS: PLATELET ESTIMATE SLIGHTLY INCREASED (NORMAL)
== END 2017-10-05 10:44 | disposition home or self-care (01) ==
LOC: H.ER 05:59
DX: J03.90 Acute tonsillitis, unspecified (principal)
CPT/HCPCS: 70491; 80048; 81025; 85025; 85610; 85730; 87040; 87070; 87430; 96374; 96375; 99284; J0696; J1885; J2405; J7030; Q9967

== ENCOUNTER 2017-11-08 12:28 | Emergency (ER) | payer OTHER ==
[2017-11-08 12:28] VITALS: BMI 34.4
[2017-11-08 12:35] VITALS: BP 123/79; PULSE 112; RESP 16; TEMP 98.7; O2SAT 98
[2017-11-08] MEDS ORDERED: Sodium Chloride 0.9% 1,000 ML IV STA (12:58)
[2017-11-08 14:08] LABS: BASO % 0.3 % (0.0-2.0); EOS % 0.1 % (0.0-4.0); HEMOGLOBIN 10.6 g/dL (12.0-16.0); LYMPH # 0.4 K/uL (1.0-4.3); MEAN CELL VOLUME 67.6 fl (81.0-99.0); MEAN CORPUSCULAR HEMOGLOBIN 21.6 pg (27.0-31.0); MEAN CORPUSCULAR HGB CONC 31.9 g/dL (33.0-37.0); MEAN PLATELET VOLUME 7.5 fl (7.2-11.7); MONO # 0.5 K/uL (0.0-0.8); MONO % 4.7 % (0.0-10.0); NEUT # 9.8 K/uL (1.8-7.0); NEUT % 90.9 % (50.0-75.0); PLATELET COUNT 515 K/uL (130-400); RBC 4.89 Mil/uL (3.80-5.20); RED CELL DISTRIBUTION WIDTH 18.2 % (11.5-14.5); WHITE BLOOD COUNT 10.7 K/uL (4.8-10.8)
[2017-11-08 14:24] LABS: ALB/GLOB RATIO 1.3 (1.0-2.1); ALBUMIN 4.6 g/dL (3.5-5.0); ALT/SGPT 25 U/L (9-52); AST/SGOT 25 U/L (14-36); BLOOD UREA NITROGEN 15 mg/dl (7-17); CALCIUM 9.1 mg/dL (8.4-10.2); GFR AFRICAN-AMERICAN > 60; GFR NON-AFRICAN AMERICAN > 60; LIPASE 49 U/L (23-300)
--- NOTE | 2017-11-08 14:46 | ED PDOC ---
HPI: Abdomen Time Seen by Provider: 11/08/17 12:58 Chief Complaint (Nursing): GI Problem Chief Complaint (Provider): GI Problem History Per: Patient History/Exam Limitations: no limitations Onset/Duration Of Symptoms: Hrs Current Symptoms Are (Timing): Still Present Additional Complaint(s): 22 y/o female with no significant PMHx presents to the ED complaining of multiple episodes of vomiting and diarrhea. Patient also reports of abdominal discomfort when she feels she is about to vomit, otherwise no abdominal pain. Patient states her boyfriend had a stomach virus and his symptoms are just now improving. Otherwise: (-) fever, (-) travel, (-) antibiotic use, (-) surgery to the abdomen, (-) urinary symptoms. PMD: [facility] Past Medical History Reviewed: Historical Data, Nursing Documentation, Vital Signs Vital Signs: Last Vital Signs Temp 98.7 F 11/08/17 12:34 Pulse 112 H 11/08/17 12:34 Resp 16 11/08/17 12:34 BP 123/79 11/08/17 12:34 Pulse Ox 98 11/08/17 15:22 - Medical History PMH: Migraine - Surgical History Surgical History: No Surg Hx Denies: Appendectomy - Family History Family History: States: Diabetes, Hypertension - Home Medications Home Medications: Ambulatory Orders Medication Instructions Recorded Guaifen/Phenyleph/Acetaminophn 1 tab PO BID #14 tab 05/07/16 [Mucinex Fast-Max Cold & Sinus 325 mg-200 mg-5] Ondansetron ODT [Zofran ODT] 4 mg PO QID #20 odt 05/15/16 Meloxicam [Mobic] 7.5 mg PO DAILY PRN #14 tab 08/29/16 Nitrofurantoin Macrocrystals 100 mg PO BID #14 cap 11/24/16 [Macrobid] Azithromycin [Zithromax] 250 mg PO DAILY #6 tab 04/10/17 Ondansetron ODT [Zofran ODT] 1 odt PO Q6 PRN #20 odt 08/06/17 Ibuprofen [Motrin Tab] 800 mg PO Q6H PRN #20 tab 08/20/17 Amoxicillin/Clavulanate [Augmentin 1 tab PO BID #20 tab 10/05/17 875 MG-125 MG] Lidocaine 2% Viscous 10 ml MM Q4H PRN #1 bottle 10/05/17 Naproxen [Naprosyn] 500 mg PO BID PRN #20 tablet 10/05/17 Ondansetron ODT [Zofran ODT] 4 mg PO DAILY PRN #20 odt 11/08/17 - Allergies Allergies/Adverse Reactions: Allergies Allergy/AdvReac Type Severity Reaction Status Date / Time pineapple Allergy REDNESS Verified 11/08/17 12:38 Review of Systems ROS Statement: Except As Marked, All Systems Reviewed And Found Negative Constitutional: Negative for: Fever Gastrointestinal: Positive for: Vomiting, Abdominal Pain (only when about to vomit), Diarrhea Genitourinary Female: Negative for: Dysuria, Frequency, Hematuria Physical Exam - Reviewed Nursing Documentation Reviewed: Yes Vital Signs Reviewed: Yes - Physical Exam Comments: GENERAL APPEARANCE: Patient is awake, alert, oriented x 3, in no distress. SKIN: Warm, dry; (-) cyanosis. EYES: (-) conjunctival pallor, (-) scleral icterus. ENMT: Dry Mucous Membranes. NECK: (-) tenderness, (-) stiffness, (-) lymphadenopathy. CHEST AND RESPIRATORY: (-) rales, (-) rhonchi, (-) wheezes; breath sounds equal bilaterally. HEART AND CARDIOVASCULAR: (-) irregularity; (-) murmur, (-) gallop. ABDOMEN AND GI: (-) distention. Bowel sounds active; Soft, (-) tenderness to deep palpation, (-) guarding, (-) rebound, (-) palpable masses, (-) CVA tenderness. EXTREMITIES: (-) deformity, (-) edema, (+) distal pulses. NEURO AND PSYCH: Mental status as above; (-) focal findings. - Laboratory Results Result Diagrams: 11/08/17 14:00 11/08/17 14:00 - ECG O2 Sat by Pulse Oximetry: 98 (RA) Pulse Ox Interpretation: Normal Medical Decision Making Medical Decision Making: Time: 1257 Plan: -- Sodium Chloride IV 1000 mls/hr -- Pepcid 20 mg IVP -- Zofran Inj 4 mg IVP -- IV Insertion -- ED Urine Dipstick -- ED Urine -- CMP -- Lipase -- CBC with differentials Time: 144 -- Negative HCG results -- Negative U-Dip results -- Labs reviewed : Hgb is 10.6 - Patient states that she has a h/o DANIKA, and has not been taking her Fe pills x1 year. She also admits not following up with her pmd regarding her anemia. Ttime: 1500 -- Patient remains awake, alert, oriented x 3 and is laying in bed comfortably. Patient states she feels better, reports no nausea or diarrhea while in the ER. On exam, abdomen is soft and non tender. IVF still infusing. Patient is able to tolerate PO fluids. Patient instructed to follow-up with pmd in 1-2 days without fail. Advised to take medication as prescribed. Instructed to f/u with her pmd regarding her anemia. Return to the emergency room at any time for any new or worsening symptoms. Patient states she fully agrees with and understands discharge instructions. States that she agrees with the plan and disposition. Verbalized and repeated discharge instructions and plan. I have given the patient opportunity to ask any additional questions. Scribe Attestation: Documented by Julio Alcala acting as a scribe for Milly Bashir PA-C. Provider Scribe Attestation: All medical record entries made by the Scribe were at my direction and personally dictated by me. I have reviewed the chart and agree that the record accurately reflects my personal performance of the history, physical exam, medical decision making, and the department course for this patient. I have also personally directed, reviewed, and agree with the discharge instructions and disposition. Disposition - Clinical Impression Clinical Impression: Gastroenteritis - Patient ED Disposition Is Patient to be Admitted: No Counseled Patient/Family Regarding: Studies Performed, Diagnosis, Need For Followup, Rx Given - Disposition Disposition: Routine/Home Disposition Time: 15:15 Condition: STABLE Additional Instructions: Thank you for letting us take care of you today. You were treated for gastroenteritis. The emergency medical care you received today was directed towards the acute presenting symptoms. If you were prescribed any medication, please fill it and give as directed. BRAT diet. It may take several days for your symptoms to resolve. Return to the Emergency Department at any time if symptoms worsen, do not improve, or if any other problems arise. Please contact your doctor in 2 days for re-evaluation and follow up. Bring any paperwork you were given at discharge with you along with any medications to your follow up visit. Our treatment cannot replace ongoing medical care by a primary care provider (PCP) outside of the emergency department. Thank you for allowing the [facility] team to be part of your care today. Prescriptions: Ondansetron ODT [Zofran ODT] 4 mg PO DAILY PRN #20 odt PRN Reason: Nausea/Vomiting Instructions: Viral Gastroenteritis, Adult (DC) Forms: [employer] ([place]raltarian), [facility] ED School/Work Excuse
[2017-11-08 14:54] LABS: LYMPHOCYTE 5 % (20-50); MONOCYTE 5 % (0-10); NEUTROPHIL 90 % (42-75); PLATELET ESTIMATE INCREASED (NORMAL); TOTAL CELLS COUNTED 100
[2017-11-08 14:55] LABS: ANISOCYTOSIS SLIGHT; HYPOCHROMIC SLIGHT; LARGE PLATELETS PRESENT; MICROCYTOSIS SLIGHT; OVALOCYTES SLIGHT; TEARDROP CELLS SLIGHT
== END 2017-11-08 15:58 | disposition home or self-care (01) ==
LOC: H.ER 12:28
DX: K52.9 Noninfective gastroenteritis and colitis, unspecified (principal)
CPT/HCPCS: 80053; 81025; 83690; 85025; 96374; 96375; 99284; J2405; J7030

== ENCOUNTER 2018-03-12 17:34 | Emergency (ER) | payer OTHER ==
[2018-03-12 17:34] VITALS: BMI 34.4
[2018-03-12 18:00] VITALS: BP 117/74; RESP 16; TEMP 98.3; O2SAT 98
--- NOTE | 2018-03-12 19:39 | ED PDOC ---
HPI: Headache Time Seen by Provider: 03/12/18 19:14 Chief Complaint (Nursing): Dizziness/Lightheaded Chief Complaint (Provider): Dizziness/Lightheaded History Per: Patient History/Exam Limitations: no limitations Onset/Duration Of Symptoms: Hrs Current Symptoms Are (Timing): Still Present Quality: Tightness Associated Symptoms: denies: Nausea, Vomiting Additional Complaint(s): Yesi Garcia is a 22 year old female with a past medical history of migraines who is presenting to the ED for evaluation of lightheadedness and dizziness associated with pressure to head onset earlier today. Patient states that she was laying down and when symptoms started and they are worse when walking and with movement of the head. She denies taking any control and reports that she has not had any similar symptoms in the past. Patient denies any chest pain, shortness of breath, nausea, vomiting, or shortness of breath. PMD: [facility] Past Medical History Reviewed: Historical Data, Nursing Documentation, Vital Signs Vital Signs: Last Vital Signs Temp 98.3 F 03/12/18 17:57 Pulse 83 03/12/18 17:57 Resp 16 03/12/18 17:57 BP 117/74 03/12/18 17:57 Pulse Ox 98 03/12/18 17:57 - Medical History PMH: Migraine - Surgical History Surgical History: Denies: Appendectomy Other surgeries: Bradley teeth surgery - Family History Family History: States: Diabetes, Hypertension - Social History Current smoker - smoking cessation education provided: No Alcohol: None Drugs: Denies - Home Medications Home Medications: Ambulatory Orders Medication Instructions Recorded Guaifen/Phenyleph/Acetaminophn 1 tab PO BID #14 tab 05/07/16 [Mucinex Fast-Max Cold & Sinus 325 mg-200 mg-5] Ondansetron ODT [Zofran ODT] 4 mg PO QID #20 odt 05/15/16 Meloxicam [Mobic] 7.5 mg PO DAILY PRN #14 tab 08/29/16 Nitrofurantoin Macrocrystals 100 mg PO BID #14 cap 11/24/16 [Macrobid] RX: Azithromycin [Zithromax] 250 mg PO DAILY #6 tab 04/10/17 Ondansetron ODT [Zofran ODT] 1 odt PO Q6 PRN #20 odt 08/06/17 Ibuprofen [Motrin Tab] 800 mg PO Q6H PRN #20 tab 08/20/17 Amoxicillin/Clavulanate [Augmentin 1 tab PO BID #20 tab 10/05/17 875 MG-125 MG] RX: Lidocaine 2% Viscous 10 ml MM Q4H PRN #1 bottle 10/05/17 RX: Naproxen [Naprosyn] 500 mg PO BID PRN #20 tablet 10/05/17 Ondansetron ODT [Zofran ODT] 4 mg PO DAILY PRN #20 odt 11/08/17 RX: Docusate [Colace] 100 mg PO BID #60 cap 03/12/18 RX: Ferrous Sulfate 325 mg PO BID #60 tablet 03/12/18 - Allergies Allergies/Adverse Reactions: Allergies Allergy/AdvReac Type Severity Reaction Status Date / Time pineapple Allergy REDNESS Verified 03/12/18 17:57 Review of Systems ROS Statement: Except As Marked, All Systems Reviewed And Found Negative Cardiovascular: Negative for: Chest Pain Respiratory: Negative for: Shortness of Breath Gastrointestinal: Negative for: Nausea, Vomiting Neurological: Positive for: Dizziness, Other (lightheadedness, no loss of consciousness) Physical Exam - Reviewed Nursing Documentation Reviewed: Yes Vital Signs Reviewed: Yes - Physical Exam Appears: Positive for: Well, Non-toxic, No Acute Distress Head Exam: Positive for: ATRAUMATIC, NORMAL INSPECTION, NORMOCEPHALIC Skin: Positive for: Normal Color, Warm, DRY Eye Exam: Positive for: EOMI, Normal appearance, PERRL ENT: Positive for: Normal ENT Inspection Neck: Positive for: Normal, Painless ROM Cardiovascular/Chest: Positive for: Regular Rate, Rhythm Respiratory: Positive for: Normal Breath Sounds. Negative for: Respiratory Distress Gastrointestinal/Abdominal: Positive for: Normal Exam, Soft. Negative for: Tenderness Back: Positive for: Normal Inspection Extremity: Positive for: Normal ROM. 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 Negative for: Motor/Sensory Deficit s - Laboratory Results Result Diagrams: 03/12/18 20:20 03/12/18 20:20 - ECG ECG Rhythm: Positive for: Normal QRS, Normal ST Segment, Sinus Rhythm Rate: 80 O2 Sat by Pulse Oximetry: 98 (RA) Pulse Ox Interpretation: Normal - Progress Re-evaluation Time: 21:50 Condition: Re-examined, Improved Medical Decision Making Medical Decision Making: Time: 19:34 Impression: dizziness/lightheadedness Differentials: vertigo, peripheral dizziness including BPV, autostatic dizziness, cardiac arrhythmia Plan: --BMP --Troponin --ED Urine Dipstick --ED Urine Preganncy --CBC --Antivert 20 mg PO --IV Fluids Scribe Attestation: Documented by Sharyn Noriega, acting as a scribe for Betty Gaitan MD. Provider Scribe Attestation: All medical record entries made by the Scribe were at my direction and personally dictated by me. I have reviewed the chart and agree that the record accurately reflects my personal performance of the history, physical exam, medical decision making, and the department course for this patient. I have also personally directed, reviewed, and agree with the discharge instructions and disposition. Disposition - Clinical Impression Clinical Impression: Dizziness, Anemia - Patient ED Disposition Is Patient to be Admitted: No Doctor Will See Patient In The: Office Counseled Patient/Family Regarding: Studies Performed, Diagnosis - Disposition Disposition: Routine/Home Disposition Time: 21:51 Condition: GOOD Additional Instructions: YESI GARCIA, thank you for letting us take care of you today. Your provider was Betty Gaitan MD and you were treated for LIGHTHEADED. The emergency medical care you received today was directed at your acute symptoms. If you were prescribed any medication, please fill it and take as directed. It may take several days for your symptoms to resolve. Return to the Emergency Department if your symptoms worsen, do not improve, or if you have any other problems. Please contact your doctor or call one of the physicians/clinics you have been referred to that are listed on the Patient Visit Information form that is included in your discharge packet. Bring any paperwork you were given at discharge with you along with any medications you are taking to your follow up visit. Our treatment cannot replace ongoing medical care by a primary care provider outside of the emergency department. Thank you for allowing the [facility] team to be part of your care today. If you had an X-Ray or CT scan: A Radiologist will review the ED reading if any change in treatment is needed we will contact you. If you had a blood, urine, or wound culture: It will take several days for the results, if any change in treatment is needed we will contact you. If you had an STI test: It will take 48 hours for the results. Please call after 1 week if you have not heard back. Prescriptions: RX: Docusate [Colace] 100 mg PO BID #60 cap RX: Ferrous Sulfate 325 mg PO BID #60 tablet Instructions: Anemia Caused by Low Iron, Dizziness, Nonvertigo, (DC) Forms: [facility] ED School/Work Excuse
[2018-03-12] MEDS: Sodium Chloride 0.9% 1,000 ML IV STA (20:19)
[2018-03-12 20:23] LABS: BASO % 0.4 % (0.0-2.0); EOS % 0.3 % (0.0-4.0); HEMOGLOBIN 10.1 g/dL (12.0-16.0); LYMPH % 22.1 % (20.0-40.0); MEAN CELL VOLUME 67.9 fl (81.0-99.0); MEAN CORPUSCULAR HEMOGLOBIN 21.4 pg (27.0-31.0); MEAN CORPUSCULAR HGB CONC 31.5 g/dL (33.0-37.0); MEAN PLATELET VOLUME 7.5 fl (7.2-11.7); MONO # 0.7 K/uL (0.0-0.8); MONO % 8.3 % (0.0-10.0); NEUT # 6.1 K/uL (1.8-7.0); NEUT % 68.9 % (50.0-75.0); RBC 4.74 Mil/uL (3.80-5.20); WHITE BLOOD COUNT 8.9 K/uL (4.8-10.8)
[2018-03-12 20:34] VITALS: PULSE 80
[2018-03-12 21:22] LABS: BLOOD UREA NITROGEN 11 mg/dl (7-17); GFR NON-AFRICAN AMERICAN > 60
[2018-03-12 21:23] LABS: CALCIUM 9.5 mg/dL (8.4-10.2)
--- NOTE | 2018-03-13 09:51 | CARD ---
APPROVED REPORT Date of service: 03/12/2018 EKG Measurement Heart [id number] <Conclusion> Normal sinus rhythm Normal Electrocardiogram
== END 2018-03-12 22:17 | disposition home or self-care (01) ==
LOC: H.ER 17:34
DX: R42 Dizziness and giddiness (principal); D64.9 Anemia, unspecified
CPT/HCPCS: 80048; 81025; 84484; 85025; 93005; 96360; 99283; J7030